=== PATIENT | female | born 1995 | race Caucasian/White ===

== ENCOUNTER 2021-12-06 15:39 | Emergency (ER) | payer BC ==
[2021-12-06 16:35] LABS: HEMOGLOBIN 15.6 gm/dl (12.3-15.3); RED BLOOD COUNT 5.17 M/UL (4.00-5.10); WHITE BLOOD COUNT 10.2 K/UL (4.5-11.0)
[2021-12-06 17:10] LABS: BUN/CREATININE RATIO 10 (0-10)
== END 2021-12-06 19:35 | disposition home or self-care (01) ==
LOC: ER1 15:39
PROVIDERS: Student in an Organized Health Care Education/Training Program
DX: R55 Syncope and collapse (principal); Z90.49 Acquired absence of other specified parts of digestive tract
CPT/HCPCS: 71045; 80053; 81001; 82550; 82553; 84484; 84703; 85025; 93005; 99284

== ENCOUNTER → 2021-12-24 | Outpatient (CLI) | payer BC | LOC: CT 12-04 11:30 | DX: E27.8 Other specified disorders of adrenal gland (principal); N20.0 Calculus of kidney | CPT/HCPCS: Q9967 ==